=== PATIENT | male | born 1990 | race Caucasian/White ===

== ENCOUNTER 2016-06-13 14:42 | Emergency (ER) | payer OTHER ==
--- NOTE | 2016-06-19 15:23 | NUR ---
Received SAD person referral. Pt was EPC'd to [facility].
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
== END 2016-06-13 17:30 ==
LOC: ER 14:42
DX: S51.812A Laceration without foreign body of left forearm, initial encounter (principal); F32.9 Major depressive disorder, single episode, unspecified; R45.851 Suicidal ideations; F17.210 Nicotine dependence, cigarettes, uncomplicated; Z98.890 Other specified postprocedural states; Y04.0XXA Assault by unarmed brawl or fight, initial encounter

== ENCOUNTER 2016-07-03 17:52 | Emergency (ER) | payer OTHER ==
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
== END 2016-07-03 20:15 | disposition home or self-care (01) ==
LOC: ER 17:52
DX: S46.911A Strain of unspecified muscle, fascia and tendon at shoulder and upper arm level, right arm, initial encounter (principal); W19.XXXA Unspecified fall, initial encounter